=== PATIENT | male | born 1990 | race Caucasian/White ===

== ENCOUNTER 2024-04-23 16:23 | Emergency (ER) | payer MEDICAID, OTHER ==
[~2024-04-23] VITALS: Ht 188 cm; Wt 110.7 kg
[~2024-04-23 16:23] MED LIST: NO HOME MEDS; ONDA8TAB9 PO
[2024-04-23 17:43] LABS: BASOPHILS % (AUTO) 0.2 % (0-1); EOSINOPHILS % (AUTO) 0.1 % (0-6); HEMATOCRIT 44.1 % (42.0-52.0); HEMOGLOBIN 15.1 g/dl (14.0-17.9); LYMPHOCYTES # (AUTO) 1.3 X10'3 (1.1-4.8); LYMPHOCYTES % (AUTO) 8.9 % (21-51); MEAN CORPUSCULAR HGB CONC 34.2 g/dL (33.0-36.5); MEAN CORPUSCULAR VOLUME 96.4 FL (78-98); MEAN PLATELET VOLUME 7.1 FL (7.4-10.4); MONOCYTES # (AUTO) 1.1 X10'3 (0-0.9); NEUTROPHILS # (AUTO) 12.6 X10'3 (1.8-7.7); NEUTROPHILS % (AUTO) 83.8 % (42-75); PLATELET COUNT 278 X10'3 (140-440); RED BLOOD COUNT 4.58 X10'6 (4.70-6.10); RED CELL DISTRIBUTION WIDTH 13.2 % (11.5-14.5)
[2024-04-23 17:52] LABS: INR 1.1 INR; PROTHROMBIN TIME 11.1 SECONDS (9.0-12.0)
[2024-04-23 17:55] LABS: ALANINE AMINOTRANSFERASE 17 U/L (12-78); ALBUMIN/GLOBULIN RATIO 1.1 (1.1-1.5); ALKALINE PHOSPHATASE 86 IU/L (46-116); ANION GAP 4 (8-16); ASPARTATE AMINO TRANSFERASE 23 U/L (10-37); BILIRUBIN,TOTAL 0.6 MG/DL (0.1-1.0); BLOOD UREA NITROGEN 11 MG/DL (7-18); BUN/CREATININE RATIO 8.5 (10.0-20.0); CALCIUM 8.8 MG/DL (8.5-10.1); CHLORIDE 101 MMOL/L (99-107); CREATINE KINASE 399 U/L (39-308); GLUCOSE 86 MG/DL (70-104); SODIUM 137 MMOL/L (135-145); TOTAL CARBON DIOXIDE 32.4 MMOL/L (24-32); TOTAL PROTEIN 7.8 G/DL (6.4-8.2); eCRCL 96 ML/MIN; eGFR 64 ML/MIN
[2024-04-23 17:58] LABS: ETHANOL < 10 MG/DL (<10)
[2024-04-23] MEDS ORDERED: iohexol 300mg/ml 100ml inj. ONE (18:07)
[2024-04-23] MEDS: ondansetron/PF 4mg/2ml inj IV ONE (18:33)
[2024-04-23] MEDS: morphine 4 MG/ML inj SYRINge IV ONE (18:33)
[2024-04-23] MEDS: normal saline 1000ml 1,000 ML IV ONE ×2 (18:44)
[2024-04-23] MEDS: HYDROmorphone inj. 0.5 MG/0.5 ML DISP.SYRIN IV ONE (20:15)
[2024-04-23] MEDS: TETanus/Pertussis (Acell)/Diphther VAC/PF (Tdap-Adult) 0.5ml syringe IMVAC ONE (20:17)
[2024-04-23 21:05] VITALS: PULSE 86
[2024-04-23 22:00] VITALS: BP 144/80; RESP 18; TEMP 97.9; O2SAT 100
== END 2024-04-23 22:00 | disposition short-term general hospital (02) ==
LOC: ER 16:23
DX: S02.69XA Fracture of mandible of other specified site, initial encounter for closed fracture (principal); I10 Essential (primary) hypertension; J45.909 Unspecified asthma, uncomplicated; F41.9 Anxiety disorder, unspecified; F32.A Depression, unspecified; F12.90 Cannabis use, unspecified, uncomplicated; Z79.899 Other long term (current) drug therapy; X58.XXXA Exposure to other specified factors, initial encounter; Y93.89 Activity, other specified; Y92.89 Other specified places as the place of occurrence of the external cause; Y99.8 Other external cause status
CPT/HCPCS: 36415; 70450; 70486; 71260; 72125; 74177; 80053; 80320; 82550; 83605; 85025; 85610; 86885; 86900; 86901; 90471; 90715; 96361; 96374; 96375; 99285; J1171; J2270; J2405; J7030; Q9967